=== PATIENT | female | born 1990 | race Caucasian/White ===

== ENCOUNTER 2017-12-04 15:58 | Emergency (ER) | payer MEDICAID ==
[~2017-12-04] VITALS: Ht 165.1 cm; Wt 163.6 kg
[~2017-12-04 15:58] MED LIST: CLOT15CR74 TP; NAPR-1154 PO; NO HOME MEDS
[2017-12-04 17:19] VITALS: BP 131/54
== END 2017-12-04 17:20 | disposition home or self-care (01) ==
LOC: ER 15:59
DX: M25.512 Pain in left shoulder (principal); M25.552 Pain in left hip; E11.9 Type 2 diabetes mellitus without complications; J45.909 Unspecified asthma, uncomplicated; Z79.899 Other long term (current) drug therapy; W01.0XXA Fall on same level from slipping, tripping and stumbling without subsequent striking against object, initial encounter; Y93.01 Activity, walking, marching and hiking; Y92.89 Other specified places as the place of occurrence of the external cause; Y99.8 Other external cause status
CPT/HCPCS: 73030; 73502; 99284

== ENCOUNTER 2018-07-29 09:30 | Emergency (ER) | payer MEDICAID ==
[~2018-07-29] VITALS: Ht 165.1 cm; Wt 156.0 kg
[2018-07-29 09:58] VITALS: BP 156/105
[2018-07-29] MEDS ORDERED: METH4TAB81 PO (10:38)
[2018-07-29] MEDS ORDERED: AMOX-580 PO (10:38)
== END 2018-07-29 10:53 | disposition home or self-care (01) ==
LOC: ER 09:30
DX: J32.9 Chronic sinusitis, unspecified (principal); E11.9 Type 2 diabetes mellitus without complications; J45.909 Unspecified asthma, uncomplicated; Z79.899 Other long term (current) drug therapy
CPT/HCPCS: 99283